=== PATIENT | male | born 1950 | race Caucasian/White ===

== ENCOUNTER 2017-11-18 12:11 | Inpatient (IN) | payer MEDICARE ==
[~2017-11-18 12:11] MED LIST: ISOVUE-370 76%-LOCM 1 ML ONE
[2017-11-18] MEDS ORDERED: Acetaminophen 325 MG TAB ONE (14:04)
--- NOTE | 2017-11-18 14:34 | CT ---
CT ANGIO OF HEAD AND NECK CT PERFUSION STUDY: Date: 11/18/17 HISTORY: Stroke symptoms. FINDINGS: The lung apices are clear. Thyroid gland is normal in size. No focal cord lesions. No significant jug ular chain adenopathy. Parapharyngeal spaces are clear. There is evidence of some sinus disease. There is a separate origin of the left common carotid artery from aortic arch. The left vertebral artery is dominant. There is only a tiny right vertebral seen and distally it is d ifficult to definitely follow its course, but I believe it probably contributes to some very minimal contribution to the basilar artery. A left vertebral stent is seen distally at the level of C1. The right common carotid artery shows some atherosclerotic change, but minimal stenosis. On the left side, there is ulcerative plaque present and moderately severe narrowing of the internal carotid artery just beyond this ulcerated plaque. Narrowing appears to be approximately 70% by NASCE T criteria. External carotid artery shows only mild narrowing at its origin. CT ANGIO HEAD: The anterior and middle cerebral arteries and their branches appear patent. I believe that there is p robably an anterior communicator. No signs of any thrombus. The basilar and posterior cerebral arteri es appear intact. CT PERFUSION STUDY: I do not see any definitive ischemic change. An old left parietooccipital infarct is noted. There are also subtle changes on the noncontrast CT that would suggest possible subacute right occipital infar ct, probably not old. This does not show significant findings on the CT perfusion study. IMPRESSION: 1. Dominant left vertebral artery. There has been placement of a distal left vertebral stent which d oes appear to be patent. The right vertebral artery is tiny and causes minimal contribution to the ba silar artery. 2. No significant stenosis of the right internal carotid artery. 3. Irregular ulcerated plaque involving the origin of the left internal carotid artery, but with 60- 70% narrowing by NASCET criteria at the origin of the left internal carotid. Findings discussed with Dr. Quiñonez. CODE CR. POS: [facility]
[2017-11-18] MEDS ORDERED: Meclizine HCl 25 MG TAB ONE (15:09)
[2017-11-18] MEDS ORDERED: Ondansetron ODT 4 MG TAB ONE (16:04)
[2017-11-18] MEDS ORDERED: Senokot 8.6 MG TAB PO PRN (16:15)
[2017-11-18] MEDS ORDERED: Acetaminophen 325 MG TAB PO PRN (16:15)
[2017-11-18] MEDS ORDERED: Guaifenesin DM 100-10/5 ML UDCUP PO PRN (16:15)
[2017-11-18] MEDS ORDERED: Labetalol HCl 100 MG/20 ML VIAL SLOW IVP PRN (16:15)
[2017-11-18] MEDS ORDERED: Ondansetron HCl/PF 4 MG/2 ML Vial IVP PRN (16:15)
[2017-11-18 17:19] LABS: Hemoglobin A1c 5.4 % (4.0-6.0)
[2017-11-18 18:14] VITALS: BMI 26.7
[2017-11-18] MEDS ORDERED: Meclizine HCl 25 MG TAB PO SCH (18:30)
[2017-11-18] MEDS: Promethazine HCl 25 MG/ML VIAL IM/IV PRN (18:32)
--- NOTE | 2017-11-18 20:15 | HP ---
REASON FOR ADMISSION: Acute cerebrovascular accident. HISTORY OF PRESENT ILLNESS: The patient gives history of waking up with dizziness. He tried to go t o restroom and then go towards the kitchen. He felt very dizzy and was unable to get fetch water for himself. He managed to call for help and barely made it to the chair in the living room. He also d eveloped severe nauseating feeling and vomited twice. He is also dry heaving after that. Patient st ates he has got some tendinitis. No ear discharge. No recent history of trauma to the head. The pa fox also gives history of having had left vertebral artery stent placed in [facility] 3 weeks b ack on the . Then, he had complaints of headache and visual disturbances. The patie nt was told that his right vertebral artery is infantile and not developed a period. Last Sunday, the patient felt dizzy around 8:30 in the morning, went to [facility] here in [facility]. He was transferred to [facility] in [place] for suspicion of stroke. He had a full workup again with a CT angiogram and other ancillary workup for stroke in [facility] in [place]. No int ervention was done and patient was told he did not have any acute CVA and was discharged on Sunday. Currently, he has no complaints of chest pain, palpitation, fever, shortness of breath, PND or orthop patricia. The patient quit smoking after he got a stent in [place]. PAST MEDICAL AND SURGICAL HISTORY: Diabetes mellitus type 2, coronary artery disease with 2 stents p laced 10 years back in [place], [place], dyslipidemia, left vertebral artery stent placed 3 weeks back in [place], tonsillectomy, TURP, likely for benign prostatic hypertrophy, appendectomy, tonsillectomy. CURRENT MEDICATIONS: The patient is on chlorthalidone 25 mg daily, aspirin 81 mg daily, Norvasc 10 m g daily, Singulair 10 mg daily, Lopressor extended release 25 mg daily, Tresiba 35 units subcutaneous ly daily, Lipitor 20 mg daily. The patient was on Zocor prior to him being placed on Lipitor 3 weeks back, metformin 850 mg twice daily, Plavix 75 mg daily. ALLERGIES: CODEINE and REGLAN. PERSONAL HISTORY: Quit smoking 3 weeks back prior to which has smoked one pack a day for nearly 49 y ears, does not abuse alcohol or drugs. FAMILY HISTORY: Mother of old age at the age of 82 years. Father committed suicide when he was 50 years old. CODE STATUS: FULL. REVIEW OF SYSTEMS: The following complete review of systems was negative, unless otherwise mentioned in the HPI or below: Constitutional: Weight loss or gain, ability to conduct usual activities. Skin: Rash, itching. Eyes: Double vision, pain. ENT/Mouth: Nose bleeding, neck stiffness, pain, tenderness. Cardiovascular: Palpitations, dyspnea on exertion, orthopnea. Respiratory: Shortness of breath, wheezing, cough, hemoptysis, fever or night sweats. Gastrointestinal: Poor appetite, abdominal pain, heartburn, nausea, vomiting, constipation, or diarr hea. Genitourinary: Urgency, frequency, dysuria, nocturia. Musculoskeletal: Pain, swelling. Neurologic/Psychiatric: Anxiety, depression. Allergy/Immunologic: Skin rash, bleeding tendency. PHYSICAL EXAMINATION: GENERAL: The patient is a 67-year-old male, who is currently in distress from dizziness. VITAL SIGNS: Blood pressure 162/86, pulse 70 per minute, respiratory rate 18 per minute, temperature 97.7 degrees Fahrenheit, saturating 100% on room air. NECK: Supple, no elevated JVD. HEENT: Eyes: Extraocular muscles intact. Pupils reacting to light. Oral cavity mucous membranes a re dry. No exudates or congestion. CARDIOVASCULAR: S1 and S2 heard. Regular rhythm. RESPIRATORY: Air entry 1+ bilaterally. No rales. Has scattered rhonchi. ABDOMEN: Soft, bowel sounds heard. No tenderness, rigidity or guarding. EXTREMITIES: No peripheral edema or calf tenderness. VASCULAR SYSTEM: Peripheral pulses 1+ bilateral. No ischemic ulcerations or gangrene. CENTRAL NERVOUS SYSTEM: Cranial nerves are grossly intact. The patient is alert, awake, and oriente d x3. Motor system strength is 5/5 in all 4 extremities. The patient is left handed. Strength is 5 /5 in all four extremities. Reflexes are 2+ bilateral. Babinski is downgoing. Cerebellar signs torie ssly intact. Gait was not tested as patient is very dizzy. PSYCHIATRIC: The patient is a bit anxious, otherwise no hallucinations or delusions. LABORATORY AND X-RAY FINDINGS: The patient has had CT angio of the brain done with perfusion here. This shows a dominant left vertebral artery. There is a distal left vertebral artery stent, which ap pears to be patent. Right vertebral artery is tiny and causes minimal contribution to the basilar ar matt. There is no significant stenosis of right internal carotid artery. On the left carotid, there is an ulcerated plaque present with moderately severe narrowing of the internal carotid artery just beyond this ulcerative plaque. This is seen at the origin of the left internal carotid. These findi ngs were discussed with Dr. Quiñonez by radiologist. Rest of his labs were done at [facility] m shows troponin I of 0.0. PT 13, INR 1.0, PTT 33, glucose is 121, BUN 12, creatinine 1.0. Sodium 1 37, potassium 3.6, chloride 100, bicarbonate 25, alkaline phosphatase 124, AST 18, ALT 28, albumin 4. 2, H&H 13 and 37. White count of 14, MCV 83, platelet count 374 with 77% granulocytes. His CT brain without contrast done at [facility] shows interval development of new area of hypodensit y within the right aspect of the splenium of the corpus callosum suspicious for recent infarct. Expe cted temporal evolution of known subacute infarct in the right occipital region. Chest x-ray done sh ows no acute cardiopulmonary process. EKG done shows normal sinus rhythm at 61 beats per minute. There is incomplete RBBB seen. CLINICAL IMPRESSION AND PLAN: The patient will be admitted to stroke unit for possible new cerebrova scular accident in the right carpus callosum and right occipital lobe. The patient has old left dax etooccipital infarct. He has multiple risk factors for CVA. The patient has had three CT angiograms done in the last 3 weeks and has had a left vertebral artery stent placed as well as three weeks ricky k at [facility]. He is on aspirin, Plavix, and will increase his Lipitor to 40 mg from 20. We w ill continue his Norvasc, small dose of Lopressor twice daily, meclizine for his dizziness. We will continues Tresiba. We will obtain hemoglobin A1c level. I have spoken to Dr. Vasquez for the ulcerati ve plaque and stenosis seen in the left carotids. We also consulted Dr. Maryam Gifford for Neurology . He appears to be dehydrated and we will place him on normal saline at 80 mL per hour. Please note the patient's metformin will be held for now. We will obtain MRI of the brain without contrast and echo with 2D Doppler for LV function. We will continue to closely monitor him on the stroke unit. Carrington moss patient might require rehab if his dizziness does not get better.
[2017-11-18 20:16] LABS: Amphetamine Not Detected (NotDetected); Barbiturates Screen Not Detected (NotDetected); Benzodiazepine Screen Not Detected (NotDetected); Cocaine Metabolite Screen Not Detected (NotDetected); Medtox Control Line Valid? VALID (VALID); Medtox Reader # READER 1; Methadone Not Detected (NotDetected); Methamphetamine Not Detected (NotDetected); Opiate Screen Not Detected (NotDetected); Oxycodone Screen Not Detected (NotDetected); Phencyclidine (PCP) Not Detected (NotDetected); THC/Cannabinoid Screen Not Detected (NotDetected); Tricyclic Screen Not Detected (NotDetected)
[2017-11-18] MEDS: Sodium Chloride 0.9% 1,000 ML IV SCH (20:59)
[2017-11-18] MEDS: Famotidine 20 MG TAB PO SCH (21:02)
[2017-11-18] MEDS: Metoprolol Tartrate 25 MG TAB PO SCH (21:03)
[2017-11-18] MEDS: Atorvastatin Calcium 40 MG TAB PO SCH (21:03)
[2017-11-18] MEDS: Meclizine HCl 25 MG TAB PO SCH (21:24)
--- NOTE | 2017-11-19 01:41 | CON ---
DATE OF CONSULTATION: 11/18/2017 CHIEF COMPLAINT: Dizziness. HISTORY OF PRESENT ILLNESS: The patient is a 67-year-old man with a recent history of stent placemen t. He reports he has had coronary artery disease in the past and a stent placement 10 years ago. He also has diabetes at baseline and hypercholesterolemia. He was in [place] for a family reunion [facility] and he had severe headache and visual disturbance for which he went to the ER and he was told that he had a left vertebral artery abnormality and the stent was placed for his l eft vertebral artery and since then he has had intermittent dizziness, but since this Sunday, he h as been feeling very dizzy. Daughter was in the room during my interview and she stated he could be walking and is simply collapses down and he cannot walk when he gets this dizzy and he also has been feeling nauseous. He did go to [facility] in [place] and was taken to [place], [place] and he had a repeat workup with CTA and additional workup and they told him rick t he has orthostatic hypotension and discharged him. No resolution of symptoms since then. Today mo rning, he developed severe dizziness. He could barely walk and he also vomited twice and had some dr mitchell hamlin and was brought back to the hospital today. He has no history of any chest pain or numbnes s or weakness of his extremities or double vision. He states he has vision problems, not to do with the field defects or double vision, but more to do with his inability to read. PAST MEDICAL HISTORY: Diabetes, type 2; coronary artery disease with stent placement 10 years ago; d yslipidemia; left vertebral artery stent during . PAST SURGICAL HISTORY: He had a prostatectomy for BPH, tonsillectomy, appendectomy. CURRENT MEDICATIONS: At home, he is on chlorothiazide, chlorthalidone 25 mg per day, aspirin, Norvas c, Singulair, Plavix, Lopressor, Tresiba, Lipitor, metformin. ALLERGIES: He is allergic to CODEINE and REGLAN. SOCIAL HISTORY: He used to smoke in the past. No drugs or alcohol. He lives with his daughter. FAMILY HISTORY: Mother lived to be 82. Father committed suicide at age 50. No history of stroke in the family. REVIEW OF SYSTEMS: Pulmonary: Normal. Cardiac: Normal. Gastrointestinal: Positive for vomiting and nausea. Genitourinary: Normal. Neurologic: Positive for dizziness and unsteadiness of walking along with visual difficulties while reading. Dermatologic: Normal. Hematologic: Normal. LABORATORY DATA AND IMAGING: His glucose was 123, hemoglobin 5.4. Toxicology is negative and no whi te count. No other reports are available to me here for review. His CT angiography with perfusion w as performed today. He has a dominant left vertebral artery and there has been placement of a distal left vertebral stent which does appear to be patent and right vertebral artery is tiny and causes mi nimal contribution to basilar. No stenosis of right ICA. He has an irregular ulcerated plaque at th e origin of left ICA, but with 60% to 70% narrowing at the left ICA. CT perfusion study did not show any definitive ischemic change. He had an old left parietal occipital infarct and also subtle duradn es on the noncontrast CT, suggesting possible subacute right occipital infarct, probably not old and this does not show significant findings on CT perfusion study. According to ER physician's report, jocelyn hansen were told he had abnormality in the corpus callosum in an outside CT scan and that report is not available to me for review. PHYSICAL EXAMINATION: VITAL SIGNS: Blood pressure 158/85, pulse 62, temperature 98, respiratory rate 16. GENERAL APPEARANCE: Well-built, well-nourished gentleman, who seems to be somewhat distressed. CHEST: Clear vesicular breathing. CARDIOVASCULAR: S1, S2 heard, no murmurs. ABDOMEN: Soft, nontender, no organomegaly noted. NEUROLOGICAL: Higher intellectual functions. Normal orientation to time, place and person. Cranial nerves II-XII, normal extraocular movements. Normal fundus exam. Pupils are reactive bilaterally. No facial asymmetry. Normal hearing. Normal sensation of face and normal elevation of palate. Ton kaylie is midline. No atrophy noted. Motor: Bulk normal, tone normal, strength 5/5 in upper and lower extremities in iliopsoas, hamstrings, quadriceps, ankle dorsiflexion, plantar flexion bilaterally an d deltoid, biceps, triceps, wrist extension and flexion. Deep tendon reflexes were absent throughout . Sensory: Normal to touch, pinprick, proprioception and vibration bilaterally. Cerebellar: Tootie l [id number] and [id number]. IMPRESSION: The patient with dizziness and nausea. He has had a prior vertebral artery stent during weekend and has been to [facility] locally as well as in [facility], [place] recently and was told he had orthostatic hypotension and he had recurrence of symptoms much stro nger this morning along with nausea and he is brought here for further help in evaluation. At this t teresa, his neurological examination does not show any significant deficits. He does describe visual ap raxia, particularly when reading and his CT scan performed today at our facility shows dominant left vertebral artery with a patent left stent and right vertebral artery is tiny and he does have irregul ar ulcerated plaque in the left ICA with 60% to 70% narrowing at left ICA. On the CT perfusion, ther e was no definitive ischemic change, but an old left parietal occipital area ischemia was noted and t here is also subacute right occipital infarct. I did not see a report that states there was a corpus callosum lesion. His examination is essentially normal neurologically. I did not see any nystagmus on exam either. Differential diagnosis includes possible orthostatic hypotension versus abnormal fl ow dynamics in the stented area, which needs to be further studied. RECOMMENDATIONS: 1. Continue aspirin and Plavix for his stroke and stent which was placed recently. 2. If the stent is compatible with MRI, we can obtain an MRI, please check with MRI team. 3. Dr. Vasquez is going to see him for his carotid artery disease. 4. Please consider obtaining transcranial Dopplers to study the vertebral artery and flow in the ICA as well. 5. I will request Dr. Burgos to follow up on this patient tomorrow and please call if there are any fu rther questions.
[2017-11-19 04:41] LABS: #Basophils 0.1 thou/uL (0.0-0.2); #Eosinphils 0.5 thou/uL (0.0-0.7); #Lymphocytes 2.6 thou/uL (1.20-3.40); #Monocytes 1.2 thou/uL (0.11-0.59); #Neutrophils 10.1 thou/uL (1.40-6.50); %Basophils 0.5 % (0.0-1.0); %Eosinophils 3.7 % (0.0-10.0); %Lymphocytes 17.8 % (21.0-51.0); %Monocytes 8.2 % (0.0-10.0); %Neutrophils 69.7 % (42.0-75.0); Hemoglobin 12.7 g/dL (14.0-18.0); Mean Corpuscular Hemoglobin 29.1 pg (27.0-31.0); Mean Corpuscular Volume 85.6 fl (80.0-94.0); Mean Platelet Volume 6.3 fL (7.4-10.4); Platelet Count 375 thou/uL (130-400); RBC Distribution Width 12.8 % (11.5-14.5); Red Blood Cell (RBC) Count 4.37 mill/uL (4.70-6.10); White Blood Cell (WBC) Count 14.4 thou/uL (4.8-10.8)
[2017-11-19] MEDS: Sodium Chloride 0.9% 1,000 ML IV SCH ×2 (04:51→08:34)
[2017-11-19 05:36] LABS: Anion Gap 12 mmol/L (10-20); BUN (Urea Nitrogen) 10 mg/dL (8.4-25.7); Calc. Creatinine Clearance 84 mL/min (70-130); Calcium 9.3 mg/dL (7.8-10.44); Carbon Dioxide 27 mmol/L (23-31); Cardiac Risk 5.6 (Less than 4.5); Chloride 101 mmol/L (98-107); Cholesterol 135 mg/dl (< 200 Desired); Estimated GFR-MDRD 68; Glucose 104 mg/dL (80-115); HDL Cholesterol 24 mg/dL (>60 Neg Risk); LDL Cholesterol, Calculated 82 mg/dL; Potassium 3.5 mmol/L (3.5-5.1); Sodium 136 mmol/L (136-145); Triglycerides 147 mg/dL (Less than 150)
[2017-11-19] MEDS: Meclizine HCl 25 MG TAB PO SCH ×3 (05:45→21:03)
--- NOTE | 2017-11-19 06:47 | CON ---
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 He suffere d a stroke involving the right occipital area when vacationing in [place], ultimately undergoing a left vertebral artery stent in a dominant vertebral artery with a very small right vertebral. Sympto ms have not significantly improved and he was seen at [facility] last week where CT scan suggested 40% left internal carotid artery stenosis and a patent stent in the left vertebral artery. Due to persistent dizziness the patient represented here and no new findings have been unco mel. A CT angiogram was suggestive of a 70%, mildly ulcerated left internal carotid artery stenosi s with a patent left vertebral stent. Once again, the right occipital infarct was visualized and an old left parietal infarct. PAST MEDICAL HISTORY: As mentioned includes a remote coronary stent placement for which he has not h ad any recent followup, although he states he had a cardiac echo in [place] unknown results. He celestin s type 2 diabetes mellitus, dyslipidemia. He is also a smoker up until the current events. PAST SURGICAL HISTORY: Includes a cholecystectomy. He has also had some sort of a cystoscopy for a flap blocking his urethral lumen. MEDICATIONS: Chlorothiazide, aspirin, Norvasc, Singulair, Plavix, Lopressor, Traceba, Lipitor and me tformin. ALLERGIES: CODEINE and REGLAN. PHYSICAL EXAMINATION: GENERAL: He is an alert, cooperative gentleman in no distress. NECK: No carotid bruits. LUNGS: Clear to auscultation. CARDIAC: Regular rate and rhythm. No murmurs. ABDOMEN: Soft, nontender. No aneurysm. No organomegaly. EXTREMITIES: He has a palpable femoral bilaterally and pedal pulse in each foot. NEUROLOGIC: No mo tor deficits. VITAL SIGNS: Blood pressure 140/80 and heart rate 67. PLAN: At this time, the patient primarily has posterior circulation symptoms I presume related to hi s recent [employer] event. He may have a significant left internal carotid artery stenosis; however, I woul d like to evaluate that in the office, correlate carotid ultrasound. I would not intervene at this t teresa given his posterior circulation symptoms. I will follow up with the patient in 2-3 months.
[2017-11-19] MEDS: Promethazine HCl 25 MG/ML VIAL IM/IV PRN ×4 (06:51→21:01)
[2017-11-19] MEDS: Insulin Glargine 30 UNITS in Pre-Filled Syringe 1 EACH SC SCH (08:28)
[2017-11-19] MEDS: Famotidine 20 MG TAB PO SCH ×2 (08:29→21:04)
[2017-11-19] MEDS: Clopidogrel Bisulfate 75 MG TAB PO SCH (08:29)
[2017-11-19] MEDS: Enoxaparin Sodium 40 MG/0.4 ML SYRINGE SC SCH (08:29)
[2017-11-19] MEDS: Aspirin 81 mg Enteric Coated Tablet PO SCH (08:29)
[2017-11-19] MEDS: Amlodipine 10 MG TAB PO SCH (08:30)
[2017-11-19] MEDS: Metoprolol Tartrate 25 MG TAB PO SCH ×2 (08:30→21:03)
--- NOTE | 2017-11-19 09:49 | PDOC.PN ---
- Subjective Encounter Start Date: 11/19/17 Encounter Start Time: 08:15 Subjective: no new complaints -: still has dizziness, no weakness in any extremities - Objective Resuscitation Status: Resuscitation Status FULL:Full Resuscitation MAR Reviewed: Yes Vital Signs & Weight: Vital Signs (12 hours) Temp Pulse Resp BP BP Pulse Ox 11/19/17 08:30 60 139/80 11/19/17 07:53 97.9 F 60 16 139/80 95 11/19/17 04:48 97.8 F 67 16 142/88 H 97 11/18/17 23:50 98.1 F 64 14 145/85 H 99 Weight Weight 197 lb I&O: 11/18/17 11/19/17 11/20/17 06:59 06:59 06:59 Output Total 1200 Balance -1200 Result Diagrams: 11/19/17 04:12 11/19/17 04:12 Additional Labs: Accuchecks 11/19/17 11/18/17 06:07 21:16 POC Glucose 156 H 152 H Phys Exam - Physical Examination HEENT: PERRLA, moist MMs Neck: no JVD, supple Respiratory: no wheezing, no rales Cardiovascular: RRR, no significant murmur Gastrointestinal: soft, non-tender, positive bowel sounds Musculoskeletal: no edema, pulses present Neurological: non-focal, moves all 4 limbs Psychiatric: normal affect, A&O x 3 Dx/Plan (1) Acute CVA (cerebrovascular accident) Code(s): I63.9 - CEREBRAL INFARCTION, UNSPECIFIED Status: Acute (2) Dizziness Code(s): R42 - DIZZINESS AND GIDDINESS Status: Acute (3) HTN (hypertension) Code(s): I10 - ESSENTIAL (PRIMARY) HYPERTENSION Status: Chronic Qualifiers: Hypertension type: essential hypertension Qualified Code(s): I10 - Essential (primary) hypertension (4) CAD (coronary artery disease) Code(s): I25.10 - ATHSCL HEART DISEASE OF [place] CORONARY ARTERY W/O ANG PCTRS Status: Chronic Qualifiers: Coronary Disease-Associated Artery/Lesion type: habematolel artery [place] vs. transplanted heart: habematolel heart Associated angina: without angina Qualified Code(s): I25.10 - Atherosclerotic heart disease of [place] coronary artery without angina pectoris Comment: h/o prior 2 stents (5) DM type 2 (diabetes mellitus, type 2) Status: Chronic Qualifiers: Diabetes mellitus prison insulin use: without rat exterminator use Diabetes mellitus complication status: with unspecified complications Qualified Code(s) : E11.8 - Type 2 diabetes mellitus with unspecified complications (6) Dyslipidemia Code(s): E78.5 - HYPERLIPIDEMIA, UNSPECIFIED Status: Chronic - Plan cant get MRI due to recent stent in vertebral art 3 weeks back -: pt and family are a bit on the edge/anxious due to 3 weeks of similar compl -: -aints with ac cva. He is optimized on asp, plavix and lipitor -: gentle iv hydration due to dehydration from being nauseous/vomiting due-cva -: HbA1c is 5.4, ldl 82. Will need rehab * . Review of Systems - Medications/Allergies Allergies/Adverse Reactions: Allergies Allergy/AdvReac Type Severity Reaction Status Date / Time codeine Allergy Verified 11/18/17 19:55 metoclopramide [From Reglan] Allergy Verified 11/18/17 16:32 Medications: Current Medications Acetaminophen (Tylenol) 650 mg PO Q4H PRN PRN Reason: Headache/Fever or Pain Amlodipine Besylate (Norvasc) 10 mg PO DAILY [facility] Last Admin: 11/19/17 08:30 Dose: 10 mg Aspirin (Ecotrin) 81 mg PO DAILY [facility] Last Admin: 11/19/17 08:29 Dose: 81 mg Atorvastatin Calcium (Lipitor) 40 mg PO HS [facility] Last Admin: 11/18/17 21:03 Dose: 40 mg Clopidogrel Bisulfate (Plavix) 75 mg PO DAILY [facility] Last Admin: 11/19/17 08:29 Dose: 75 mg Enoxaparin Sodium (Lovenox) 40 mg SC 0900 [facility] Last Admin: 11/19/17 08:29 Dose: 40 mg Famotidine (Pepcid) 20 mg PO BID [facility] Last Admin: 11/19/17 08:29 Dose: 20 mg Guaifenesin/Dextromethorphan (Robitussin Dm) 15 ml PO Q4H PRN PRN Reason: Cough Insulin Glargine 30 units/ (Miscellaneous Medication) 0.3 mls @ 0 mls/hr SC QAM [facility] Last Admin: 11/19/17 08:28 Dose: 0.3 mls Sodium Chloride (Normal Saline 0.9%) 1,000 mls @ 80 mls/hr IV .[id number] [facility] Stop: 11/19/17 17:14 Last Admin: 11/19/17 08:34 Dose: 1,000 mls Labetalol HCl (Normodyne) 20 mg SLOW IVP Q1H PRN PRN Reason: BP > 220/110 Meclizine HCl (Antivert) 25 mg PO Q8HR [facility] Last Admin: 11/19/17 05:45 Dose: 25 mg Metoprolol Tartrate (Lopressor) 12.5 mg PO BID [facility] Last Admin: 11/19/17 08:30 Dose: 12.5 mg Ondansetron HCl (Zofran) 4 mg IVP Q6H PRN PRN Reason: Nausea/Vomiting Promethazine HCl (Phenergan) 25 mg IM/IV Q6H PRN PRN Reason: Nausea Last Admin: 11/19/17 06:51 Dose: 25 mg Senna (Senokot) 2 tab PO HSPRN PRN PRN Reason: Constipation
[2017-11-19 10:48] LABS: ANA Symphony (Qualitative) Negative (Negative); dsDNA IgG Antibody 5.9 IU/mL (<10 Negative)
[2017-11-19] MEDS: Atorvastatin Calcium 40 MG TAB PO SCH (21:03)
[2017-11-20] MEDS: Meclizine HCl 25 MG TAB PO SCH ×2 (06:09→13:37)
[2017-11-20] MEDS: Aspirin 81 mg Enteric Coated Tablet PO SCH (08:44)
[2017-11-20] MEDS: Clopidogrel Bisulfate 75 MG TAB PO SCH (08:44)
[2017-11-20] MEDS: Amlodipine 10 MG TAB PO SCH (08:44)
[2017-11-20] MEDS: Famotidine 20 MG TAB PO SCH (08:44)
[2017-11-20] MEDS: Metoprolol Tartrate 25 MG TAB PO SCH (08:44)
[2017-11-20] MEDS: Enoxaparin Sodium 40 MG/0.4 ML SYRINGE SC SCH (08:46)
[2017-11-20] MEDS: Insulin Glargine 30 UNITS in Pre-Filled Syringe 1 EACH SC SCH (09:18)
[2017-11-20] MEDS: Promethazine HCl 25 MG/ML VIAL IM/IV PRN (10:46)
[2017-11-20 11:58] VITALS: TEMP 97.8
[2017-11-20 13:54] VITALS: BP 154/85
--- NOTE | 2017-11-20 15:46 | PDOC.PN ---
- Subjective Encounter Start Date: 11/20/17 Encounter Start Time: 10:20 Subjective: feels better, was able to walk with PT -: still has issues with gait, not as dizzy as yesterday -: no weakness in extremities - Objective Resuscitation Status: Resuscitation Status FULL:Full Resuscitation MAR Reviewed: Yes Vital Signs & Weight: Vital Signs (12 hours) Temp Pulse Pulse Pulse Resp BP BP 11/20/17 11:57 97.8 F 65 16 11/20/17 09:42 68 62 154/85 H 11/20/17 08:45 97.5 F L 67 16 11/20/17 08:44 67 149/85 H 11/20/17 07:40 97.5 F L 66 16 11/20/17 04:00 97.8 F 63 16 BP BP Pulse Ox 11/20/17 11:57 121/74 97 11/20/17 09:42 148/84 H 11/20/17 08:45 99 11/20/17 08:44 11/20/17 07:40 149/85 H 99 11/20/17 04:00 147/88 H 97 Weight Admit Weight 197 lb Weight 197 lb I&O: 11/19/17 11/20/17 11/21/17 06:59 06:59 06:59 Intake Total 1000 750 Output Total 1200 1400 775 Balance -1200 -400 -25 Result Diagrams: 11/19/17 04:12 11/19/17 04:12 Additional Labs: Accuchecks 11/20/17 11/20/17 11/19/17 11:08 05:21 21:05 POC Glucose 116 H 90 87 11/19/17 16:41 POC Glucose 87 Phys Exam - Physical Examination HEENT: PERRLA, moist MMs Neck: no JVD, supple Respiratory: no wheezing, no rales Cardiovascular: RRR, no significant murmur Gastrointestinal: soft, non-tender, positive bowel sounds Musculoskeletal: no edema, pulses present Neurological: non-focal, moves all 4 limbs Psychiatric: normal affect, A&O x 3 Dx/Plan (1) Acute CVA (cerebrovascular accident) Code(s): I63.9 - CEREBRAL INFARCTION, UNSPECIFIED Status: Acute (2) Dizziness Code(s): R42 - DIZZINESS AND GIDDINESS Status: Acute (3) HTN (hypertension) Code(s): I10 - ESSENTIAL (PRIMARY) HYPERTENSION Status: Chronic Qualifiers: Hypertension type: essential hypertension Qualified Code(s): I10 - Essential (primary) hypertension (4) CAD (coronary artery disease) Code(s): I25.10 - ATHSCL HEART DISEASE OF [place] CORONARY ARTERY W/O ANG PCTRS Status: Chronic Qualifiers: Coronary Disease-Associated Artery/Lesion type: [place] artery [place] vs. 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
--- NOTE | 2017-11-21 02:30 | DIS ---
DATE OF ADMISSION: 11/18/2017 DATE OF DISCHARGE: 11/20/2017 DISCHARGE DISPOSITION: To home. PRIMARY DISCHARGE DIAGNOSES: Acute cerebrovascular accident with severe dizziness, resolving. SECONDARY DISCHARGE DIAGNOSES: Hypertension, coronary artery disease, diabetes mellitus type 2, dysl ipidemia. PROCEDURES DONE DURING HOSPITALIZATION: Patient has had CT angio brain done, which showed old left p arietal occipital infarct, possible subacute right occipital infarct, dominant left vertebral artery with distal left vertebral artery stent. Right vertebral artery was tiny. There is ulcerated irregu lar plaque seen at the origin of left internal carotid artery with 60-70% narrowing. Echo with 2D Do ppler showed EF of 55-60% of diastolic dysfunction. H and H 12 and 37, platelet count 375,000. Tota l cholesterol 135, triglycerides 147, LDL 82, HDL 24. Hemoglobin A1c 5.4, BUN 10, creatinine 1.0. A NA screen was negative. Urine drug screen was negative. DISCHARGE MEDICATIONS: Aspirin 81 mg p.o. daily, Plavix 75 mg p.o. daily, chlorthalidone 25 mg p.o. daily, Norvasc 10 mg p.o. daily, Tresiba 40 units subcu daily, meclizine 25 mg p.o. 3 times daily p.r .n. for dizziness, metformin 850 mg p.o. daily, Toprol-XL 25 mg daily, Singulair 10 mg daily, Protoni x 40 mg daily. ALLERGIES: CODEINE, REGLAN. DISCHARGE PLAN: Patient is to follow up with primary care physician in 1 week and he also needs foll ow up with his neurologist in 1 week. BRIEF COURSE DURING HOSPITALIZATION: Patient initially was sent from [facility] after i nitial CAT scan showed right acute infarct in the splenium of corpus callosum, also subacute infarct in the right occipital region. He was essentially admitted to stroke unit for acute CVA. The patien t has had left vertebral artery stent placed at [facility] 3 weeks back. He was also hospitalize d last Sunday at [facility] for severe dizziness and had a complete stroke workup done as well. He is currently on aspirin, Plavix, and higher dose of Lipitor. The patient also has ulce rated plaque with 60-70% stenosis of left internal carotid artery. He has had consultations with Dr. Maryam Gifford for Neurology, Dr. Vasquez for Vascular Surgery. Dr. Vasquez follow up with the patient in the outpatient setting for his left internal carotid stenosis with ulcerative plaque. The patient 's dizziness is slowly resolving. He was able to ambulate nearly 150 feet with physical therapy this morning. On arrival, the patient had very bad dizziness and was even worse for head turning and cou ld not stand. He is being discharged to inpatient rehab for further recuperation prior to going home . His family was given complete updates all through his stay here. The patient is to closely follow up with outpatient neurology.
== END 2017-11-20 13:58 | DRG 66 ==
LOC: ERS 12:11 → 2SE 15:34
PROVIDERS: ADMIT Internal Medicine; ATTEND Internal Medicine
DX: I63.9 Cerebral infarction, unspecified (principal); I25.10 Atherosclerotic heart disease of native coronary artery without angina pectoris; E78.5 Hyperlipidemia, unspecified; I65.22 Occlusion and stenosis of left carotid artery; Z88.5 Allergy status to narcotic agent; Z88.8 Allergy status to other drugs, medicaments and biological substances; Z87.891 Personal history of nicotine dependence; Z79.02 Long term (current) use of antithrombotics/antiplatelets; Z79.82 Long term (current) use of aspirin; Z79.899 Other long term (current) drug therapy
CPT/HCPCS: 0042T; 36415; 36416; 70496; 70498; 80048; 80061; 80306; 83036; 85025; 86038; 86225; 93005; 93306; A4216; G8978-GP-CM; G8979-GP-CK; G8987-GO-CK; G8988-GO-CI; G8996-GN-CH; G8997-GN-CH; G8998-GN-CH; J1650; J2550; Q0162

== ENCOUNTER 2018-09-13 10:01 | Outpatient (CLI) | payer MEDICARE ==
--- NOTE | 2018-09-13 14:36 | MRI ---
MR ANGIOGRAM OF [place] OF [place]: Date: 09/13/18 HISTORY: Stent in the intracranial left vertebral artery. Persistent headache. Evaluate for possible occlusion. Patient has a diminished GFR. COMPARISON: None. TECHNIQUE: MR angiogram of [place] is performed without intravenous Gadolinium administrati on. Axial 3D [id number] images are submitted for interpretation. Maximum intensity projection alton ges were also performed. FINDINGS: There is appropriate flow-related signal in the distal cervical and intracranial right internal carot id artery. There is mild long segment narrowing of the distal cervical left internal carotid artery. The remainder of the left internal carotid artery is similar to the contralateral side. Anterior Circulation: Symmetric flow-related signal in the A1 and M1 segments. Symmetric flow-relate d signal in the A2 segments and proximal MCA branches. The distal cervical right vertebral artery is markedly diminutive and essentially inconsequential wit h regards to supplying the basilar artery. The distal cervical left vertebral artery is patent just p roximal to the stent. At the level of the stent, there does appear to be some central flow-related si gnal suggesting stent patency. The exact diameter of the vessel at the level of the stent cannot be a ssessed due to artifact created by the stent. Just distal to the stent, the left vertebral artery has appropriate flow-related signal. The left vertebral artery supplies a normal appearing basilar arter y. Left and right posterior cerebral arteries have appropriate flow-related signal. IMPRESSION: Limited evaluation of the true lumen of the left vertebral artery stent. Patency of the stent is impl ied given evidence of flow-related signal in the central portion of the stent. Additionally, there is appropriate flow-related signal proximal to and immediately distal to the stent. Additionally, there is appropriate flow-related signal in the basilar artery, as well as bilateral P1 segments. CODE T POS: OFF
--- NOTE | 2018-09-13 17:04 | MRI ---
EXAM: MR ANGIOGRAM OF THE NECK WITHOUT CONTRAST 09/13/18 HISTORY: Occlusion and stenosis of the carotid arteries. Headache. COMPARISON: None. CORRELATION: CT angiogram of the neck 11/18/17. TECHNIQUE: Axial 3D [id number] imaging was performed. Maximum intensity projection images are submitted for interpretation. FINDINGS: There is flow related signal in the visualized aortic arch. RIGHT CAROTID: The innominate artery origin has appropriate flow related signal. The right common carotid artery, ca rotid bifurcation, and internal carotid artery are patent and have appropriate flow related signal. LEFT CAROTID: The left carotid artery origin has appropriate flow related signal. The left common carotid artery celestin s appropriate flow related signal. There is short segment moderate to severe stenosis involving the l eft carotid bifurcation and proximal internal carotid artery. There is additional short segment sever e stenosis involving the proximal left internal carotid artery. The mid left internal carotid has meenu ropriate flow related signal. The distal cervical left internal carotid artery has short segment mild to moderate narrowing with decreased flow related signal. Limited evaluation of a known diminutive right vertebral artery. There is flow related signal in the visualized left vertebral artery. IMPRESSION: When taking variations in technique into consideration, there is no appreciable change with regards t o the degree of narrowing involving the left internal carotid artery. POS: OFF
== END 2018-09-13 10:02 | disposition home or self-care (01) ==
LOC: SCSCT 10:01
PROVIDERS: ATTEND Psychiatry & Neurology Neurology
DX: I66.23 Occlusion and stenosis of bilateral posterior cerebral arteries (principal); I65.22 Occlusion and stenosis of left carotid artery
CPT/HCPCS: 70544; 70547; 82565

== ENCOUNTER 2018-11-25 10:26 | Outpatient (CLI) | payer MEDICARE ==
[2018-11-25 11:41] LABS: Hemoglobin 14.6 g/dL (14.0-18.0); Mean Corpuscular HGB CONC 33.6 g/dL (32.0-36.0); Mean Corpuscular Hemoglobin 27.5 pg (27.0-31.0); Mean Corpuscular Volume 81.9 fL (78.0-98.0); Platelet Count 384 thou/uL (130-400); RBC Distribution Width 13.2 % (11.5-14.5); Red Blood Cell (RBC) Count 5.31 mill/uL (4.70-6.10); White Blood Cell (WBC) Count 15.7 thou/uL (4.8-10.8)
[2018-11-25 12:11] LABS: Anion Gap 17 mmol/L (10-20); BUN (Urea Nitrogen) 11 mg/dL (8.4-25.7); Calc. Creatinine Clearance 0 mL/min (70-130); Calcium 10.5 mg/dL (7.8-10.44); Carbon Dioxide 29 mmol/L (23-31); Chloride 93 mmol/L (98-107); Estimated GFR-MDRD 51; Glucose 97 mg/dL (80-115); Potassium 3.2 mmol/L (3.5-5.1); Sodium 136 mmol/L (136-145)
== END 2018-11-25 10:27 | disposition home or self-care (01) ==
LOC: LABBT 10:26
PROVIDERS: ATTEND Thoracic Surgery (Cardiothoracic Vascular Surgery)
DX: Z01.818 Encounter for other preprocedural examination (principal); I65.29 Occlusion and stenosis of unspecified carotid artery
CPT/HCPCS: 80048; 85027; 93005; 93010

== ENCOUNTER 2018-11-25 10:30 | Inpatient (IN) | payer MEDICARE ==
[2018-11-26] MEDS ORDERED: Phenylephrine HCL 10 MG/ML VIAL ONE (06:07)
[2018-11-26] MEDS ORDERED: Nitroglycerin 50 MG/250 ML BOT 250 ML ONE (06:07)
[2018-11-26] MEDS ORDERED: Bupivacaine/Epinephrine 0.25% 30 ML VIAL ONE (06:46)
[2018-11-26] MEDS ORDERED: Heparin 5,000 UNITS/ML VIAL ONE (06:46)
[2018-11-26] MEDS ORDERED: Protamine Sulfate 50 MG/5 ML VIAL ONE (06:46)
[2018-11-26] MEDS ORDERED: Famotidine/PF 20 mg/2ml Vial ONE (07:03)
[2018-11-26] MEDS ORDERED: diphenhydrAMINE 50 MG/ML VIAL ONE ×2 (07:03→12:36)
[2018-11-26] MEDS ORDERED: Midazolam HCl 2 mg/2 ml Vial ONE (07:03)
[2018-11-26] MEDS ORDERED: Fentanyl 100 MCG/2 ML VIAL ONE ×3 (07:04→11:27)
[2018-11-26] MEDS ORDERED: Ondansetron PF 4 MG/2 ML Vial ONE ×2 (07:04→12:36)
[2018-11-26] MEDS ORDERED: SUGAMMADEX SODIUM 200 MG/2 ML VIAL ONE (09:05)
[2018-11-26] MEDS ORDERED: Acetaminophen 325 MG TAB PO PRN (09:10)
[2018-11-26] MEDS ORDERED: Ondansetron PF 4 MG/2 ML Vial IVP PRN (09:10)
[2018-11-26] MEDS ORDERED: Promethazine HCl 25 MG/ML VIAL IM PRN (09:10)
[2018-11-26] MEDS ORDERED: Insulin Regular 300 UNITS/3 ML VIAL SC PRN (09:10)
[2018-11-26] MEDS ORDERED: Sodium Chloride 0.9% 500 ML IV SCH (09:10)
[2018-11-26] MEDS ORDERED: traMADol HCl 50 MG TAB PO PRN (09:10)
[2018-11-26] MEDS ORDERED: Nitroglycerin 50 MG/250 ML BOT 250 ML IVPB PRN (09:10)
[2018-11-26] MEDS ORDERED: Fentanyl 100 MCG/2 ML VIAL SLOW IVP PRN (09:10)
[2018-11-26] MEDS ORDERED: DOPamine 400 MG/D5W 250 ML 250 ML IVPB PRN (09:10)
[2018-11-26] MEDS ORDERED: Phenylephrine 10 MG/NS 250 ML 250 ML IVPB PRN (09:10)
--- NOTE | 2018-11-26 10:05 | OP ---
DATE OF PROCEDURE: 11/26/2018 PREOPERATIVE DIAGNOSIS: Left carotid stenosis. POSTOPERATIVE DIAGNOSIS: Left carotid stenosis with severely ulcerated plaque. PROCEDURE PERFORMED: Left carotid endarterectomy with bovine patch angioplasty. ANESTHESIA: General. ESTIMATED BLOOD LOSS: Minimal. FINDINGS: The patient had a severely stenotic and severely ulcerated plaque with loose debris. DESCRIPTION OF PROCEDURE: After adequate anesthesia had been obtained, ultrasound was used to guide the incision site. Incision was then made after prepping and draping, and sternocleidomastoid muscle being retracted laterally clipping small branches. Vagus nerve was not visualized nor was the hypoglossal nerve. After exposing the common internal and external carotid arteries, the patient was given 7500 units of heparin. Control was obtained proximally and distally. An arteriotomy was performed. A 12-Yor[place] shot was then introduced after obtaining normal lumen distally and proximally. Following this, endarterectomy was performed with nice tapering distally, and in the external and common carotid artery. The common carotid artery proximal end was divided sharply with Brown scissors. The area was then thoroughly irrigated. Following which, a bovine patch was used to close the arteriotomy. The vessels were back flushed, forward flushed, and then, the area irrigated with heparin saline. While the suture line was being secured, flow was restored up the external and then, internal carotid arteries. Following this, protamine was given to partially reverse the heparin, and after obtaining good hemostasis, the wound was irrigated and closed in layers. The patient was to be taken to the recovery room in guarded condition. Job ID: [id number]
[2018-11-26] MEDS ORDERED: Succinylcholine Chloride 20 MG/ML 10 ml SYRINGE FS ONE (12:36)
[2018-11-26] MEDS ORDERED: Rocuronium Bromide 10 MG/ML (10ML VIAL) ONE (12:36)
[2018-11-26] MEDS ORDERED: PROPOFOL 200 MG/20 ML VIAL ONE (12:36)
[2018-11-26] MEDS ORDERED: Heparin 10,000 UNITS/ 10 ML VIAL ONE (12:36)
[2018-11-26] MEDS ORDERED: Glycopyrrolate 0.2 MG/ML 5 ML SYRINGE ONE (12:36)
[2018-11-26] MEDS ORDERED: Lidocaine 1% PF 5 ML VIAL ONE (12:36)
[2018-11-26] MEDS ORDERED: ePHEDrine 50 MG/ML VIAL ONE (12:36)
[2018-11-26 14:19] VITALS: BMI 28.1
[2018-11-26] MEDS: CEFAZOLIN 2 GM in Premix Bag 1 BAG IVPB SCH ×2 (15:04→17:19)
[2018-11-26] MEDS: Ibuprofen 200 MG TAB PO PRN ×2 (17:21→21:19)
[2018-11-26] MEDS ORDERED: Atorvastatin Calcium 40 MG TAB PO SCH (21:00)
[2018-11-27] MEDS: CEFAZOLIN 2 GM in Premix Bag 1 BAG IVPB SCH (01:13)
[2018-11-27 07:12] VITALS: TEMP 97.7
[2018-11-27 08:22] VITALS: BP 152/83
--- NOTE | 2018-11-27 08:56 | DIS ---
DATE OF ADMISSION: 11/26/2018 DATE OF DISCHARGE: 11/27/2018 HOSPITAL COURSE: The patient was admitted, underwent a left carotid endarterectomy. His postoperative course was unremarkable. He is to resume his home medicines plus prescription for tramadol as needed for pain. He will need outpatient evaluation for sleep apnea. Discharge and followup instructions have been given. Job ID: [id number]
[2018-11-27] MEDS ORDERED: Amlodipine 10 MG TAB PO SCH (09:00)
[2018-11-27] MEDS ORDERED: INSULIN DEGLUDEC 35 UNIT SC SCH (09:00)
[2018-11-27] MEDS ORDERED: Clopidogrel Bisulfate 75 MG TAB PO SCH (09:00)
[2018-11-27] MEDS ORDERED: Aspirin Chewable 81 MG TAB PO SCH (09:00)
[2018-11-27] MEDS ORDERED: Insulin Glargine 35 UNITS in Pre-Filled Syringe 1 EACH SC SCH (09:00)
[2018-11-27] MEDS ORDERED: metFORMIN 850 MG TAB PO SCH (09:00)
== END 2018-11-27 09:40 | disposition home or self-care (01) | DRG 39 ==
LOC: SURG A 11-26 05:44 → CCU 11-26 13:40
PROVIDERS: ADMIT Thoracic Surgery (Cardiothoracic Vascular Surgery); ATTEND Thoracic Surgery (Cardiothoracic Vascular Surgery)
PROC: 03CJ0ZZ Extirpation of Matter from Left Common Carotid Artery, Open Approach (ICD-10-PCS; principal; 2018-11-26)
PROC: 03UJ0KZ Supplement Left Common Carotid Artery with Nonautologous Tissue Substitute, Open Approach (ICD-10-PCS; 2018-11-26)
DX: I65.22 Occlusion and stenosis of left carotid artery (principal); I10 Essential (primary) hypertension; E78.5 Hyperlipidemia, unspecified; E11.9 Type 2 diabetes mellitus without complications; Z88.5 Allergy status to narcotic agent; Z88.8 Allergy status to other drugs, medicaments and biological substances; Z90.49 Acquired absence of other specified parts of digestive tract; Z87.891 Personal history of nicotine dependence; Z79.4 Long term (current) use of insulin; Z79.82 Long term (current) use of aspirin; Z79.899 Other long term (current) drug therapy
CPT/HCPCS: 36416; 80048; 85027; 93005; 93010; J0131; J0690; J1200; J1642; J1644; J1815; J2001; J2250; J2370; J2405; J2704; J2720; J3010; J3490; S0028

== ENCOUNTER 2019-03-05 20:30 | Outpatient (CLI) | payer MEDICARE | END 2019-03-05 20:31 | disposition home or self-care (01) | LOC: SLEEPLAB 20:30 | PROVIDERS: ATTEND Internal Medicine Pulmonary Disease | DX: G47.33 Obstructive sleep apnea (adult) (pediatric) (principal); I10 Essential (primary) hypertension; R53.83 Other fatigue; J44.9 Chronic obstructive pulmonary disease, unspecified; E11.9 Type 2 diabetes mellitus without complications; I25.10 Atherosclerotic heart disease of native coronary artery without angina pectoris; G47.31 Primary central sleep apnea; Z86.73 Personal history of transient ischemic attack (TIA), and cerebral infarction without residual deficits | CPT/HCPCS: 95810 ==

== ENCOUNTER 2019-03-27 19:30 | Outpatient (CLI) | payer MEDICARE | END 2019-03-27 19:31 | disposition home or self-care (01) | LOC: SLEEPLAB 19:30 | PROVIDERS: ATTEND Internal Medicine Pulmonary Disease | DX: G47.33 Obstructive sleep apnea (adult) (pediatric) (principal); I10 Essential (primary) hypertension; R53.83 Other fatigue; I63.9 Cerebral infarction, unspecified; R40.0 Somnolence | CPT/HCPCS: 95811 ==

== ENCOUNTER 2022-05-15 12:56 | Outpatient (CLI) | payer MEDICARE | END 2022-05-15 12:57 | disposition home or self-care (01) | LOC: BICCT 12:56 | PROVIDERS: ATTEND Internal Medicine Medical Oncology | DX: Z12.2 Encounter for screening for malignant neoplasm of respiratory organs (principal); F17.211 Nicotine dependence, cigarettes, in remission; D72.828 Other elevated white blood cell count | CPT/HCPCS: 71271 ==